=== PATIENT | male | born 1990 | race Caucasian/White ===

== ENCOUNTER 2018-11-16 20:40 | Emergency (ER) | payer OTHER ==
[2018-11-16] MEDS: KETOROLAC 60 MG INJ IM (23:36)
== END 2018-11-17 01:07 | disposition home or self-care (01) ==
LOC: FTE 11-17 01:07
DX: J10.1 Influenza due to other identified influenza virus with other respiratory manifestations (principal)
CPT/HCPCS: 87400; 87880; 96372; 99284-25